=== PATIENT | male | born 1945 | race African-American/Black ===

== ENCOUNTER 2019-03-27 11:19 | Day surgery (SDC) | payer MEDICARE, OTHER ==
[2019-03-26 13:17] VITALS: BMI 48.8
[2019-03-27] MEDS ORDERED: Lidocaine 1% PF 5 ML VIAL ONE (15:37)
[2019-03-27] MEDS ORDERED: PROPOFOL 200 MG/20 ML VIAL ONE (15:37)
--- NOTE | 2019-03-28 08:21 | OP ---
DATE OF PROCEDURE: 03/27/2019 PREPROCEDURE DIAGNOSES: 1. Colorectal cancer screening, average risk. 2. Morbid obesity. ANESTHESIA: TIVA. COMPLICATIONS: None. POSTPROCEDURE DIAGNOSIS: Normal colonoscopy. RECOMMENDATION: No further colorectal cancer screening recommended in light of patient's age. I would be happy to see him back to evaluate for any acute GI symptoms. Carbohydrate restricted diet was also recommended. DESCRIPTION OF PROCEDURE: The patient was informed of the risks, benefits, and possible complications of endoscopy including perforation, reaction to medication, and aspiration. Informed consent was obtained. The patient was brought to endoscopy suite, where he was sedated in gradual fashion. Once he was comfortable, rectal examination was performed, which was normal. Endoscope was advanced through the anal canal through the colon to the cecum, which was identified by ileocecal valve and appendiceal orifice. The scope was then slowly removed. There was good visualization of the mucosa. There were no mass, lesions, or AV malformations. Retroflexed views in the rectum were normal. Scope was removed. The patient tolerated the procedure well. There were no complications. Job ID: [id number]
== END 2019-03-27 15:35 | disposition home or self-care (01) ==
LOC: SDC 11:19
PROVIDERS: ATTEND Internal Medicine Gastroenterology
PROC: 0DJD8ZZ Inspection of Lower Intestinal Tract, Via Natural or Artificial Opening Endoscopic (ICD-10-PCS; principal; 2019-03-27)
DX: Z12.11 Encounter for screening for malignant neoplasm of colon (principal); E78.00 Pure hypercholesterolemia, unspecified; I10 Essential (primary) hypertension; G47.30 Sleep apnea, unspecified; E66.01 Morbid (severe) obesity due to excess calories; Z68.42 Body mass index [BMI] 45.0-49.9, adult; Z79.82 Long term (current) use of aspirin; Z79.899 Other long term (current) drug therapy; Z87.891 Personal history of nicotine dependence

== ENCOUNTER 2023-07-28 07:35 | Outpatient (CLI) | payer MEDICARE, OTHER | END 2023-07-28 07:36 | disposition home or self-care (01) | LOC: BICULT 07:35 | PROVIDERS: ATTEND Student in an Organized Health Care Education/Training Program | DX: N17.9 Acute kidney failure, unspecified (principal) | CPT/HCPCS: 76770; 93975 ==

== ENCOUNTER 2023-08-12 09:31 | Outpatient (CLI) | payer MEDICARE, OTHER ==
[2023-08-12] MEDS ORDERED: Iopamidol-370 76% 500 ML MDV (1 ML CHARGE) ONE (15:33)
== END 2023-08-12 09:32 | disposition home or self-care (01) ==
LOC: BICCT 09:31
PROVIDERS: ATTEND Student in an Organized Health Care Education/Training Program
DX: I70.1 Atherosclerosis of renal artery (principal); N17.9 Acute kidney failure, unspecified
CPT/HCPCS: 74174; 82565; Q9967